=== PATIENT | male | born 1990 | race African-American/Black ===

== ENCOUNTER 2020-07-08 00:19 | Emergency (ER) | payer SELFPAY ==
[~2020-07-08] VITALS: Ht 175.3 cm; Wt 84.0 kg
[2020-07-08 00:47] VITALS: BP 114/87
[2020-07-08] MEDS ORDERED: ACETAMINOPHEN 325MG TABLET PO ONE (01:15)
== END 2020-07-08 01:16 | disposition home or self-care (01) ==
LOC: ER 00:19
DX: R25.2 Cramp and spasm (principal)
CPT/HCPCS: 99283

== ENCOUNTER 2020-07-29 08:34 | Emergency (ER) | payer SELFPAY ==
[~2020-07-29] VITALS: Ht 180.3 cm; Wt 70.0 kg
[2020-07-29 08:39] VITALS: BP 119/77
[2020-07-29] MEDS ORDERED: AZITHROMYCIN 500 MG TABLET PO ONE (09:15)
[2020-07-29] MEDS ORDERED: LIDOCAINE HCL 1% 20ML VIAL (Pyxis) INJ INFIL ONE (09:15)
[2020-07-29] MEDS ORDERED: CEFTRIAXONE SODIUM 250 MG/VIAL IM ONE (09:15)
== END 2020-07-29 09:29 | disposition home or self-care (01) ==
LOC: ER 08:48
DX: N34.2 Other urethritis (principal); A64 Unspecified sexually transmitted disease
CPT/HCPCS: 96372; 99283; J0696; J3490